=== PATIENT | female | born 1975 | race Native Hawaiian/Other Pacific Islander ===

== ENCOUNTER 2017-07-25 18:11 | Emergency (ER) | payer OTHER ==
[~2017-07-25] VITALS: Ht 152.4 cm; Wt 72.6 kg
[2017-07-25] MEDS ORDERED: METF-479 (18:36)
[2017-07-25] MEDS ORDERED: NORE1TAB62 (18:36)
[2017-07-25] MEDS ORDERED: NAPR-915 (18:36)
[2017-07-25] MEDS ORDERED: GLIP-197 (18:36)
[2017-07-25] MEDS ORDERED: LISI-556 (18:36)
--- NOTE | 2017-07-25 18:54 | ED Upper Extremity ---
General Chief Complaint: Upper Extremity Stated Complaint: LEFT HAND INJ Nursing Triage Note: PT REPORTS INJURED L HAND WHEN HOME WINDOW SHUT ON IT WHILE SHE WAS TRYING TO OPEN THE WINDOW. Nursing Sepsis Screen: No Definite Risk Source: patient Exam Limitations: no limitations (nno active) History of Present Illness Date Seen by Provider: Jul 25, 2017 Time Seen by Provider: 18:53 Initial Comments To ER with pain at the MCP joint left hand, this would be the second third and fourth MCP joints after a window shut accidentally on her hand at home. No laceration or open wounds. Onset: this evening Severity: moderate Pain/Injury Location: left 2nd finger, left 3rd finger, left 4th finger Method of Injury: direct blow Modifying Factors: Worse With Movement Allergies and Home Medications Allergies Coded Allergies: No Known Drug Allergies (Unverified , 07/25/17) Patient Home Medication List Home Medication List Reviewed: Yes Constitutional: see HPI EENTM: see HPI Respiratory: no symptoms reported Cardiovascular: no symptoms reported Genitourinary: no symptoms reported Musculoskeletal: see HPI Skin: no symptoms reported Psychiatric/Neurological: No Symptoms Reported Past [id number]-[id number]-[id number] Hx Patient Social History Alcohol Use: Denies Use Recreational Drug Use: No Smoking Status: Never a Smoker Recent Foreign Travel: No Contact w/Someone Who Travel: No Recent Infectious Disease Expo: No Recent Hopitalizations: No Physical Abuse: No Sexual Abuse: No Mistreated: No Fear: No Past Medical History Surgeries: No Respiratory: No Cardiac: Yes Hypertension Neurological: No Genitourinary: No Gastrointestinal: No Musculoskeletal: No Endocrine: Yes Diabetes, Non-Insulin dep HEENT: No Cancer: No Psychosocial: No Nursing Suicide Risk Score: 0 Integumentary: No Blood Disorders: No Physical Exam Vital Signs Vital Signs - First Documented 07/25/17 18:29 Temp 98.1 Pulse 77 Resp 18 B/P (MAP) 108/77 (87) Pulse Ox 97 Capillary Refill : Less Than 3 Seconds General Appearance: WD/WN, no apparent distress HEENT: PERRL/EOMI, normal ENT inspection Neck: non-tender, full range of motion Respiratory: no respiratory distress, no accessory muscle use Gastrointestinal: normal bowel sounds, non tender, soft Shoulder: normal inspection, non-tender Elbow/Forearm: normal inspection, non-tender Wrist: Yes normal inspection, Yes non-tender Hand: Left, swelling (Over the second third and fourth MCP joints dorsally. She maintains normal sensation and capillary refill of the fingertips.) Neurologic/Psychiatric: alert, normal mood/affect, oriented x 3 Skin: normal color, warm/dry Progress/Results/Core Measures My Orders Orders - SOFIA NORIEGA APRN Hand, Left, 3 Views (07/25/17 18:51) Rx-Hydrocodone/Apap 5-325 Mg (Rx-Vicodin (07/25/17 19:45) Vital Signs/I&O 07/25/17 18:29 Temp 98.1 Pulse 77 Resp 18 B/P (MAP) 108/77 (87) Pulse Ox 97 Blood Pressure Mean: 87 Departure Impression Primary Impression: Contusion of hand Disposition: HOME, SELF-CARE Condition: Stable Departure-Patient Inst. Decision time for Depature: 19:41 Referrals: NO,LOCAL PHYSICIAN (PCP) Primary Care Physician Patient Instructions: Contusion (DC) Add. Discharge Instructions: 1. Ice pack to the hand 2. Tylenol and Motrin for pain control. All discharge instructions reviewed with patient and/or family. Voiced understanding. Work/School Note: Work Release Form Date Seen in the Emergency Department: Jul 25, 2017 Return to Work: Jul 26, 2017 Other Restrictions Listed Below: Keep right hand in splint until 07/28/17. SOFIA NORIEGA APRN Jul 25, 2017 18:54
[2017-07-25 19:42] VITALS: BP 142/87
[2017-07-25] MEDS ORDERED: RX-HYDROCODONE/APAP 5/325 MG #4 TAB PK PO PRN (19:45)
--- NOTE | 2017-07-25 19:58 | Diagnostic Imaging Report ---
EXAMINATION: Left hand, three views. COMPARISON: None. HISTORY: 42-year-old female, window fell on hand. Pain in the region of the knuckles. FINDINGS: There is no identified radiopaque foreign body. There is no identified acute fracture or dislocation. There is no particularly prominent focal soft tissue swelling. There is no periosteal reaction. There is downsloping of the articulating surface of the distal radius in the region of the lunate fossa. This is likely a chronic finding and potentially may be congenital. IMPRESSION: 1. No identified radiopaque foreign body. 2. No identified acute bony abnormality. 3. 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 Dictated by: Dictated on workstation # [id number]
== END 2017-07-25 19:42 | disposition home or self-care (01) ==
LOC: EDUNIT# 18:11 → ER 18:13
DX: S60.222A Contusion of left hand, initial encounter (principal); E11.9 Type 2 diabetes mellitus without complications; I10 Essential (primary) hypertension; W23.0XXA Caught, crushed, jammed, or pinched between moving objects, initial encounter; Y92.009 Unspecified place in unspecified non-institutional (private) residence as the place of occurrence of the external cause
CPT/HCPCS: 73130